=== PATIENT | female | born 1950 | race African-American/Black ===

== ENCOUNTER 2016-11-07 19:14 | Emergency (ER) | payer MEDICARE, MEDICAID ==
[~2016-11-07] VITALS: Ht 160 cm; Wt 59.0 kg
[2016-11-07 21:17] VITALS: BP 155/95
== END 2016-11-07 22:12 | disposition home or self-care (01) ==
LOC: ER 19:15
DX: M79.605 Pain in left leg (principal); I10 Essential (primary) hypertension; W01.0XXA Fall on same level from slipping, tripping and stumbling without subsequent striking against object, initial encounter; Y93.89 Activity, other specified; Y99.9 Unspecified external cause status; Y92.89 Other specified places as the place of occurrence of the external cause
CPT/HCPCS: 82962; 99283